=== PATIENT | female | born 1965 | race Caucasian/White ===

== ENCOUNTER 2020-07-30 09:25 | Outpatient (CLI) | payer BC ==
[~2020-07-30 09:25] MED LIST: CALC500T93 PO; CHOL2000 PO; CYAN25003 PO; MULT-326 PO; POTA99TA14 PO; STRONTIUM PO; VENL37.52 PO
== END 2020-07-30 23:59 | disposition home or self-care (01) ==
LOC: CVU 09:25
PROVIDERS: ATTEND Internal Medicine Cardiovascular Disease
DX: I34.0 Nonrheumatic mitral (valve) insufficiency (principal); R00.0 Tachycardia, unspecified; Z82.49 Family history of ischemic heart disease and other diseases of the circulatory system
CPT/HCPCS: 93306; 93356